=== PATIENT | female | born 1945 | race Caucasian/White ===

== ENCOUNTER 2024-03-02 12:43 | Outpatient (CLI) | payer MEDICARE, SELFPAY ==
--- NOTE | 2024-03-02 12:58 | USCV_ITS ---
Nimo Todd Age: 78 Gender: F : 1945 Exam Date: 03/02/2024 13:37 Ordering Phys: Hunter Hanks MD Technologist: ANOOP [place]am Location[place] [facility] [place]: hearing loss bilat Risk Factors: Previous Vascular Surgery: Right Brachial BP: / Left Brachial BP: / Right Left Velocity (cm/s) Spectral Plaque Velocity (cm/s) Spectral Plaque Syst/Diast Broadening Syst/Diast Broadening 92.60/ 27.20 Prox CCA 88.40 / 24.10 75.10/ 22.90 Mid CCA 82.00 / 25.10 88.00/ 29.30 Distal CCA 74.50 / 23.50 70.20/ 23.20 Prox ICA 50.10 / 18.00 80.80/ 22.60 Mid ICA 47.10 / 17.20 72.30/ 26.80 Distal ICA 58.90 / 22.10 67.10 ECA 52.00 0.90 ICA/CCA 0.80 Antegrade Vertebral Antegrade 42.90/ 13.30 cm/s 63.60/ 19.80 cm/s Tri Subclavian Tri 78.60 75.30 CONCLUSIONS Intimal thickening in the common carotid arteries and internal carotid arteries bilaterally. Right ICA stenosis <50%. Mild atheromatous plaque right carotid bulb/ICA. Left ICA stenosis <50%. Mild atheromatous plaque left carotid bulb/ICA. Normal antegrade Doppler flow noted in the right vertebral artery. Normal antegrade Doppler flow noted in the left vertebral artery. Isak Poon MD (Electronically Signed) Final Date: 02 Mar 2024 17:00 S
== END 2024-03-02 12:44 | disposition home or self-care (01) ==
LOC: RAD 12:46
PROVIDERS: PCP Family Medicine; Visit Provider Specialist
DX: H90.3 Sensorineural hearing loss, bilateral (principal); I65.23 Occlusion and stenosis of bilateral carotid arteries
CPT/HCPCS: 93880

== ENCOUNTER 2024-04-10 13:13 | Outpatient (CLI) | payer MEDICARE, SELFPAY ==
--- NOTE | 2024-04-10 13:23 | MR_ITS ---
WS: [id number] MR VENOGRAPHY HEAD 3-D noncontrast imaging performed through the cerebral veins. All imaging is reviewed. HISTORY: PULSATILE TINNITUS,BILATERAL COMPARISON: None available. Very good demonstration of the dural venous sinuses and cerebral veins. There are no filling defects to suggest acute or chronic thrombus. Slightly smaller caliber LEFT transverse sinus but it is patent and this is consistent with a normal variant. Flow artifact in the jugular veins. Superior sagittal sinus, straight sinus and transverse sinuses are all patent with no significant thrombus. MR/[place] [id number] IMPRESSION: Normal MR venogram cerebral veins.
--- NOTE | 2024-04-10 13:23 | MR_ITS ---
WS: [id number] MRI BRAIN WITH HIGH-RESOLUTION IMAGING THROUGH THE INTERNAL AUDITORY CANALS WITHOUT AND WITH CONTRAST HISTORY: SENSORINEURAL HEARING LOSS,BILATERAL COMPARISON: None available. TECHNIQUE: Multiplanar, multisequence imaging is performed through the brain. Additional 3 mm imaging performed in multiple planes through the internal auditory canal. Postcontrast imaging with 12 ml's of MultiHance. Note: Dedicated sequences performed for Dr. Hanks was not performed as the patient was unable to compl ete the entire examination. No acute intracranial hemorrhage, midline shift, edema or mass effect. Mild atrophy and mild small vessel ischemic disease. Small vessel disease predominantly around the ve ntricles. No prior infarct. No hemorrhage. Normal hippocampal formations. Ventricles and extra-axial spaces are normal. No inferior displacement of cerebellar tonsils. Clivus and pituitary gland are normal. Internal and external auditory canals: Unremarkable. There is a small artery that courses close to th e LEFT internal auditory canal. This is asymmetric to the RIGHT. Branch does appear to be arising fro m the distal vertebral artery suggesting this might be the PICA. Cranial nerves VII and VIII complexes: Unremarkable. No enhancement or mass. Cerebellopontine angles: Normal. Paranasal sinuses: Normal. Mastoid air cells: Normal. Calvarium and scalp: Normal. Visualized [place] and dural venous sinuses demonstrate no abnormality. MR/MR iac's wo/w con* [id number] IMPRESSION: 1. No mass or abnormal enhancement associated with the internal auditory canal s. 2. Mild cerebral atrophy and small vessel ischemic disease. 3. Normal hippocampal formations. 4. No mastoid air cell disease.
--- NOTE | 2024-04-10 13:23 | MR_ITS ---
WS: [id number] MRA ANGIOGRAPHY [place] HISTORY: PULSATILE TINNITUS,BILATERAL COMPARISON: None available. TECHNIQUE: 3-D MR angiography is performed of the [place]. All images are reviewed including source images. Distal vertebral and basilar arteries are intact with no significant stenosis or plaque. Posterior ce rebral arteries are normal course and caliber. Posterior communicating arteries are both patent. Intracranial portion of the internal carotid arteries are normal course and caliber. No significant a therosclerosis, stenosis or aneurysm identified. Middle and anterior cerebral arteries are both paten t with no significant disease. Anterior communicating artery is also normal. MR/MR angio head wo con [id number] IMPRESSION: Normal MRA [place].
[2024-04-10] MEDS: gadobenate dimeglumine 20 mL vial IV (14:22)
== END 2024-04-10 13:14 | disposition home or self-care (01) ==
LOC: RAD 13:14
PROVIDERS: PCP Family Medicine; Visit Provider Specialist
DX: H93.A3 Pulsatile tinnitus, bilateral (principal)
CPT/HCPCS: 70544; 70553; A9577